=== PATIENT | male | born 2000 | race Two or more races ===

== ENCOUNTER 2025-11-10 15:20 | Emergency (ER) | payer OTHER ==
[~2025-11-10] VITALS: Ht 175.3 cm; Wt 68.0 kg
[2025-11-10] MEDS ORDERED: BUPROPION XL300 MG (17:08)
[2025-11-10 17:09] VITALS: BP 134/80; O2SAT 100
[2025-11-10] MEDS ORDERED: CEFTRIAXONE SODIUM 1,000 MG in DEXTROSE 5 % IN WATER 100 ML IV ONE (19:45)
[2025-11-10] MEDS ORDERED: AZITHROMYCIN 500 MG TABLET PO ONE ×2 (19:45→21:17)
[2025-11-10 20:13] LABS: BASO % 0.5 % (0.1-1.2); EOS # 0.05 (0.04-0.54); EOS % 0.8 % (0.7-7.0); LYMPH # 2.85 (1.18-3.74); LYMPH % 46.2 % (19.3-53.1); MEAN PLATELET VOLUME 8.30 fl (9.4-12.4); MONO # 0.55 (0.24-0.82); MONO % 8.9 % (4.7-12.5); NEUT # 2.68 (1.56-6.13); NEUT % 43.4 % (34.0-71.1); RED CELL DISTRIBUTION WIDTH 12.5 % (11.6-14.4)
[2025-11-10 20:38] LABS: URINE APPEARANCE Clear; URINE BILIRRUBIN Negative (NEGATIVE); URINE BLOOD Negative; URINE COLOR Yellow; URINE GLUCOSE Negative (NEGATIVE); URINE KETONE Negative (NEGATIVE); URINE LEUKOCYTE Negative; URINE NITRATE Negative; URINE PROTEIN Negative (NEGATIVE); URINE UROBILINOGEN 0.2 E.U./dl
[2025-11-10 20:41] LABS: URINE BACTERIA 32.0 uL (0.0-1933); URINE RBC 3.1 uL (0.0-20.8); URINE WBC 5.9 uL (0.0-23.2)
[2025-11-10 20:47] LABS: URINE CAST 0.00 uL (0.0-1.40); URINE EPITHELIAL CELLS 0.6 uL (0.0-38.8)
[2025-11-10 20:52] LABS: INR 1.11
[2025-11-10 20:56] LABS: ALT/SGPT 45.0 U/L (12-78); AST/SGOT 25.0 U/L (15-37); BILIRUBIN TOTAL 0.61 mg/dL (0.3-1.2); BUN CREA RATIO 19.0 (7.0-25.0); CREATININE SERUM 1.22 mg/dL (0.70-1.30); GFR 71.8; GLOBULINA 3.3 G/DL (2.4-3.5); GLUCOSE FASTING 79.0 mg/dL (65-100); OSMOLALITY SERUM 284.0 MOSM/KG (275-295)
[2025-11-10 21:04] LABS: COCAINE NEGATIVE (NEGATIVE); METHADONE NEGATIVE (NEGATIVE); OPIATES NEGATIVE (NEGATIVE); THC ( Cannabinoids) POSITIVE (NEGATIVE)
== END 2025-11-10 23:02 | disposition home or self-care (01) ==
LOC: ER 15:21
PROVIDERS: General Practice
DX: T76.21XA Adult sexual abuse, suspected, initial encounter (principal); F19.90 Other psychoactive substance use, unspecified, uncomplicated